=== PATIENT | female | born 1945 | race Caucasian/White ===

== ENCOUNTER 2016-11-09 07:44 | Day surgery (SDC) | payer OTHER ==
[2016-11-08 18:11] VITALS: BMI 32.5
[2016-11-09] MEDS ORDERED: PROPOFOL 20 ML ONE ×3 (08:52→10:59)
[2016-11-09] MEDS ORDERED: MIDAZOLAM HCL 2 MG/2 ML SINGLE DOSE VIAL ONE (08:52)
[2016-11-09] MEDS ORDERED: THROMBIN (BOVINE) 5,000 UNIT VIAL TP ONE (09:07)
[2016-11-09] MEDS ORDERED: HEPARIN NA (PORCINE) 5,000 UNITS/ML 1ML VIAL ONE (09:07)
[2016-11-09] MEDS ORDERED: GELATIN, ABSORBABLE 100 EACH SPONGE TP ONE (09:07)
[2016-11-09] MEDS ORDERED: GUM MASTIC/STORAX/MSAL/ALCOHOL 1 DRP DROPSBTL MC ONE (11:11)
--- NOTE | 2016-11-09 11:37 | OP ---
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
[2016-11-09] MEDS ORDERED: SODIUM CHLORIDE 1,000 ML IV SCH (11:45)
[2016-11-09] MEDS ORDERED: oxyCODONE HCL 5 MG TABLET PO PRN (11:50)
[2016-11-09] MEDS ORDERED: ONDANSETRON 4 MG/2 ML VIAL IVPUSH PRN (11:50)
--- NOTE | 2016-11-09 12:59 | OP ---
DATE OF OPERATION: 11/09/2016 PREOPERATIVE DIAGNOSIS: Renal failure with nonfunctioning arteriovenous fistula, left arm, for placement of a right upper arm arteriovenous graft. SURGEON: Luzma Alvarado MD TRANSPORT SPECIALIST: ANGELINA Dobbs ANESTHESIA: Local with sedation. The patient was brought to the operating room. Right arm was prepped and draped in the usual manner. Local with Marcaine was injected. The right axilla was infiltrated with local. Axillary vein and the brachial artery were both isolated and encircled with vessel loop. A U-tunnel was created, artery laterally and vein medially, and a 4 x 7-mm graft was brought through the tunnel. The 7 mm was anastomosis to the venous side and 4 mm to the arterial side. Flow was established, with a good thrill. After adequate hemostasis, subcutaneous incisions in skin were closed. Patient went to the recovery room in stable condition. LUZMA ALVARADO M.D. [id number] cc: Kai Willams MD
[2016-11-09 14:55] VITALS: BP 121/55; PULSE 80; TEMP 97.6
== END 2016-11-09 14:35 | disposition home or self-care (01) ==
LOC: FASU 07:44
PROVIDERS: ATTEND Surgery Vascular Surgery
DX: T82.590A Other mechanical complication of surgically created arteriovenous fistula, initial encounter (principal); T85.610A Breakdown (mechanical) of cranial or spinal infusion catheter, initial encounter; Y83.8 Other surgical procedures as the cause of abnormal reaction of the patient, or of later complication, without mention of misadventure at the time of the procedure; N18.6 End stage renal disease; Z99.2 Dependence on renal dialysis
CPT/HCPCS: 94760; J1644